=== PATIENT | female | born 2000 | race Caucasian/White ===

== ENCOUNTER 2018-09-13 05:11 | Inpatient (IN) ==
[2018-09-13] MEDS ORDERED: LR 1,000 ML IV SCH (05:15)
[2018-09-13] MEDS ORDERED: BICITRA PO ONE ×2 (05:20→05:30)
[2018-09-13] MEDS ORDERED: PEPCID PO ONE ×2 (05:20→05:30)
[2018-09-13] MEDS ORDERED: REGLAN IV ONE ×2 (05:20→05:30)
--- NOTE | 2018-09-13 05:46 | HISTORY AND PHYSICAL ---
CHIEF COMPLAINT: Thirty-nine weeks intrauterine with a history of prior . HISTORY OF PRESENT ILLNESS: Patient is a 18-year-old black female, G2, P1, at 39 and 0/7ths weeks with a history of prior who was scheduled for repeat . The patient's care has been unremarkable except for anemia. PAST MEDICAL HISTORY: Significant for anemia. PAST SURGICAL HISTORY: and tonsillectomy. PAST OB HISTORY: G2, P1, x1. SALES COORDINATOR HISTORY: Menarche at age 9. REVIEW OF SYSTEMS: All systems reviewed and noncontributory. FAMILY HISTORY: Significant for diabetes mellitus. SOCIAL HISTORY: Tobacco use none. Alcohol use none. MEDICATIONS: vitamins and iron. ALLERGIES: Penicillin. PHYSICAL EXAMINATION: VITAL SIGNS: Height 5 feet 2 inches, weight 216 pounds. Temperature 98.4 degrees, blood pressure 138/81, pulse of 84, respirations 20, and heart rate 154. HEENT: Pupils equal, round, and reactive to light and accommodation. Extraocular movements intact. Oropharynx clear. NECK: Supple. No thyromegaly. LUNGS: Clear to auscultation. HEART: Regular rate and rhythm. ABDOMEN: Gravid. Nontender. EXTREMITIES: No clubbing, cyanosis, or edema noted. NEUROLOGIC: Cranial nerves 2-12 grossly intact. Motor 5/5. DTRs 2+ bilaterally. ASSESSMENT AND PLAN: A 18-year-old black female, G2, P1, at 39 and 0/7ths weeks gestation with a history of prior . Patient is scheduled for repeat . She was counseled about the risks of surgery including bleeding, infection, bowel or bladder injury. Surgery is scheduled for 09/13/2018. cc: Cb Parish III, MD
[2018-09-13 05:50] LABS: URINE SOURCE VOIDED
[2018-09-13 05:58] LABS: BASO# 0.02 X1000 (0.0-0.2); BASO% 0.2 % (0.0-0.8); EOS# 0.13 X1000 (0.0-0.7); EOS% 1.2 % (0.0-10.0); HEMOGLOBIN 10.4 g/dL (12.0-16.0); IMM GRAN# 0.03 X1000 (0.0-0.04); IMM GRAN% 0.3 % (0.0-0.5); LYMPH# 3.07 X1000 (1.2-3.4); LYMPH% 27.7 % (20.5-51.1); MCH 24.7 PG (27-31); MCHC 32.5 g/dL (33-37); MONO# 0.92 X1000 (0.11-0.59); MONO% 8.3 % (1.7-9.3); MPV 10.5 FL (7.4-10.4); NEUT# 6.92 X1000 (1.4-6.5); NEUT% 62.3 % (42.2-75.2); PLT 377 X1000 (130-400); RBC 4.21 XMIL (4.2-5.4); RDW 14.4 % (11.5-14.5); WBC 11.09 X1000 (4.8-10.8)
[2018-09-13] MEDS ORDERED: CLINDAMYCIN 900 MG/D5W 900 MG/50 ML IVPB IV ONE (06:12)
[2018-09-13 06:23] LABS: BILIRUBIN URINE NEGATIVE (NEGATIVE); CLARITY CLEAR (CLEAR); COLOR YELLOW; GLUCOSE URINE NEGATIVE (NEGATIVE); KETONE URINE TRACE mg/dL (NEGATIVE)
[2018-09-13] MEDS ORDERED: SODIUM CHLORIDE 0.9% 10 ML ONE (06:30)
[2018-09-13] MEDS ORDERED: PITOCIN ONE (06:30)
[2018-09-13 06:32] LABS: UR AMPHETAMINES QUAL NONE DETECTED (NONE DETECT); UR BARBITUATES QUAL NONE DETECTED (NONE DETECT); UR BENZODIAZEPIN QUAL NONE DETECTED (NONE DETECT); UR CANNABINOIDS QUAL NONE DETECTED (NONE DETECT); UR COCAINE QUAL NONE DETECTED (NONE DETECT); UR METHADONE QUAL NONE DETECTED (NONE DETECT); UR METHAMPHETAMINE QUAL NONE DETECTED (NONE DETECT); UR OPIATES QUAL NONE DETECTED (NONE DETECT); UR OXYCODONE QUAL NONE DETECTED (NONE DETECT); UR PCP QUAL NONE DETECTED (NONE DETECT); UR PROPOXYPHENE QUAL NONE DETECTED (NONE DETECT); UR TCA QUAL NONE DETECTED (NONE DETECT)
[2018-09-13] MEDS ORDERED: EPHEDRINE ONE (06:32)
[2018-09-13] MEDS ORDERED: DURAMORPH ONE (06:34)
[2018-09-13] MEDS ORDERED: ZOFRAN ONE (07:40)
[2018-09-13] MEDS ORDERED: DEMEROL PO PRN ×2 (08:06)
[2018-09-13] MEDS ORDERED: BOOSTRIX VACCINE IM ONE (08:06)
[2018-09-13] MEDS ORDERED: AMBIEN PO PRN (08:06)
[2018-09-13] MEDS ORDERED: DEMEROL IM PRN (08:06)
[2018-09-13] MEDS ORDERED: HYDROXYZINE IM PRN (08:06)
[2018-09-13] MEDS ORDERED: DULCOLAX PR PRN (08:06)
[2018-09-13] MEDS ORDERED: NORCO-5 PO PRN (08:06)
[2018-09-13] MEDS ORDERED: PITOCIN 20 UNITS/NS 20 UNITS/1,000 ML IV.SOLN IV ONE (08:06)
[2018-09-13] MEDS ORDERED: M-M-R II VACCINE SUBQ ONE (08:06)
[2018-09-13] MEDS ORDERED: ATARAX PO PRN (08:06)
[2018-09-13] MEDS ORDERED: PITOCIN IM PRN (08:06)
[2018-09-13] MEDS ORDERED: MYLICON PO PRN (08:06)
[2018-09-13] MEDS ORDERED: PHENERGAN IM PRN (08:06)
[2018-09-13 08:10] LABS: BLOOD URINE NEGATIVE (NEGATIVE); LEUKOCYTES URINE 1+ (NEGATIVE); NITRITE URINE NEGATIVE (NEGATIVE); PROTEIN URINE TRACE mg/dL (NEGATIVE); UROBILINOGEN URINE 4 mg/dL
--- NOTE | 2018-09-13 09:01 | OPERATIVE NOTE ---
PROCEDURE DATE: 09/13/2018 PREOPERATIVE DIAGNOSIS: Intrauterine (IUP) at 39 weeks with history of prior . POSTOPERATIVE DIAGNOSIS: Intrauterine (IUP) at 39 weeks with history of prior with operative delivery of a female infant, 7 pounds 2 ounces with Apgars of 8 and 9 at 7:23 on 09/13/2018. PROCEDURE: Repeat low-transverse . SURGEON: Dr. Parish. SKIP HOIST OPERATOR: Dr. Culp. ANESTHESIA: Spinal, Amy Spangler FINDINGS: Normal-appearing uterus, tubes, and ovaries. COMPLICATIONS: None. ESTIMATED BLOOD LOSS: 500 mL. SPECIMENS REMOVED: Placenta. DRAINS: Wilder to straight drain. COUNTS: All counts were correct x3. INDICATIONS: Patient is a 18-year-old black female, G2, P1, at 39 weeks gestation with a history of prior . Patient IS scheduled for elective repeat . Patient counseled about the risks of surgery including bleeding, infection, bowel or bladder injury. DESCRIPTION OF PROCEDURE: The patient was taken to labor and delivery OR. Spinal anesthesia was placed and then patient was placed in the supine position with a roll under right hip. She was prepped and draped in a sterile fashion. Placed in Wilder catheter. Adequate anesthesia was noted by using Allis clamps on the skin and then a Pfannenstiel skin incision was made on lower abdomen using scalpel. This was taken down sharply to the fascia layer. A small zeina was made in the rectus fascia. The facile incision was then extended bilaterally by curved Dumont scissors and pickups, and then sharp and blunt dissection superiorly and inferiorly of the rectus fascia was performed. The rectus muscles then divided in the midline. Peritoneal layer was entered bluntly and then the incision was then extended superiorly and inferiorly with care taken to avoid the bladder. At this point in time, a bladder blade was placed into the abdominal cavity. Bladder reflection was created but there were dense adhesions to the bladder. The scalpel was then used to make an transverse incision was made on the lower segment of the uterus and this was extended by the surgeon's fingers. Clear fluid was noted upon entry into the amniotic cavity and the head was then elevated toward the hysterotomy site and with gentle fundal pressure, the head was delivered and then bulb suction of the nose and mouth, then the rest the body was delivered atraumatically with gentle fundal pressure. The umbilical cord was clamped twice and cut. handed to nursery nurse in attendance for delivery. The cord blood sample was obtained and then the placenta was manually extracted. Uterus was then exteriorized. Wet lap was placed around the uterus. Dry lap was then used to curette the uterine cavity of clots and debris. Uterine incision was then closed using 0 chromic in a running, locking fashion x1. A small area of oozing was noted on the left corner made hemostatic with interrupted stitch of 0 chromic. The posterior cul-de-sac was then cleansed using irrigation and the uterus was replaced back into the abdominal cavity. The pericolic gutters were cleansed using moist lap sponges. The uterine incision and bladder reflection were inspected and good hemostasis was noted. The tubes and ovaries were also noted to be normal in appearance. The peritoneal layer was then closed using 2-0 chromic in a running fashion x1 and 3 interrupted sutures of 2-0 chromic were used to reapproximate the rectus muscle. Fascia was then closed using 0 PDS in a running fashion x1. Subcutaneous layer was then irrigated using saline and electrocautery was used to obtain hemostasis. Three interrupted sutures of 3-0 chromic were used to reapproximate the subcutaneous layer. [place] were used to reapproximate the skin. Patient tolerated the procedure well and was taken recovery room in a stable condition. All counts were correct x3. cc: Cb Parish III, MD
[2018-09-13] MEDS: TORADOL IV SCH ×3 (09:27→22:19)
[2018-09-13] MEDS ORDERED: ZOFRAN ODT PO PRN (10:15)
[2018-09-13] MEDS ORDERED: ZOFRAN IV PRN ×2 (10:15)
[2018-09-13] MEDS ORDERED: BENADRYL IV PRN (10:15)
[2018-09-13] MEDS ORDERED: NARCAN INJ PRN (10:15)
[2018-09-13] MEDS: MYLICON PO SCH ×5 (15:36→20:28)
[2018-09-13] MEDS: NORCO-10 PO PRN (18:20)
[2018-09-13] MEDS ORDERED: PITOCIN 20 UNITS/NS 20 UNITS/1,000 ML IV.SOLN ONE (18:59)
[2018-09-13] MEDS: PITOCIN 10 UNITS/NS 1,000 ML IV SCH (19:47)
[2018-09-13] MEDS: FLINTSTONES COMPLETE PO SCH (19:47)
[2018-09-13] MEDS: PERICOLACE PO SCH (20:28)
[2018-09-14] MEDS: PITOCIN 10 UNITS/NS 1,000 ML IV SCH (03:26)
[2018-09-14] MEDS: TORADOL IV SCH (04:46)
[2018-09-14 06:43] LABS: BASO# 0.02 X1000 (0.0-0.2); BASO% 0.2 % (0.0-0.8); EOS# 0.14 X1000 (0.0-0.7); EOS% 1.3 % (0.0-10.0); HEMATOCRIT 27.1 % (37.0-47.0); HEMOGLOBIN 8.5 g/dL (12.0-16.0); IMM GRAN# 0.02 X1000 (0.0-0.04); IMM GRAN% 0.2 % (0.0-0.5); LYMPH# 1.99 X1000 (1.2-3.4); MCH 24.6 PG (27-31); MCHC 31.4 g/dL (33-37); MCV 78.3 FL (81-99); MONO# 0.86 X1000 (0.11-0.59); MONO% 7.8 % (1.7-9.3); NEUT% 72.5 % (42.2-75.2); PLT 255 X1000 (130-400); RBC 3.46 XMIL (4.2-5.4); RDW 14.5 % (11.5-14.5); WBC 11.03 X1000 (4.8-10.8)
[2018-09-14] MEDS: NORCO-10 PO PRN (07:24)
[2018-09-14] MEDS ORDERED: LR 1,000 ML IV SCH (08:07)
[2018-09-14] MEDS: FERROUS SULFATE PO SCH (10:22)
[2018-09-14] MEDS: MOTRIN PO PRN ×2 (10:22→17:33)
[2018-09-14] MEDS: FLINTSTONES COMPLETE PO SCH (10:22)
[2018-09-14] MEDS: MYLICON PO SCH ×5 (10:22→20:58)
[2018-09-14] MEDS ORDERED: PERCOCET-5 PO PRN (11:59)
[2018-09-14] MEDS ORDERED: LEXAPRO PO ONE ×2 (12:01→15:34)
[2018-09-14] MEDS: PERCOCET-10 PO PRN ×2 (12:57→17:33)
[2018-09-14] MEDS: LEXAPRO PO SCH (16:28)
[2018-09-14] MEDS: PERICOLACE PO SCH (20:58)
[2018-09-15] MEDS: MOTRIN PO PRN (02:10)
[2018-09-15] MEDS: PERCOCET-10 PO PRN ×2 (02:10→09:58)
--- NOTE | 2018-09-15 07:41 | OB/GYN PROGRESS NOTE ---
Progress Note OB - . Patient Problems: Current Active Problems Problem Status Onset care following delivery Acute History of depression Acute Hx of drug abuse Acute Intrauterine Acute OB Progress Note: Vital Signs - 24 hr 09/14/18 13:00 09/14/18 16:00 09/14/18 16:10 Temperature 97.9 F 97.8 F Pulse Rate 81 91 H Respiratory Rate 16 16 Blood Pressure 121/63 139/77 O2 Sat by Pulse Oximetry 99 100 98 09/14/18 21:00 09/15/18 02:15 Temperature 97.1 F L Pulse Rate 81 77 Respiratory Rate 18 18 Blood Pressure 135/84 157/89 O2 Sat by Pulse Oximetry 99 100 HPI: Pt seen and exmained. Currently w/o complaints. Denies pain. Ambulating and urinating without difficulty. Tolerating regular diet. Denies fever/chills/n/v.Decreased lochia. VS: please see above GEN: NAD, resting in bed comfortably CV: +S1+S2, RRR RESP: CTA b/l ABD: soft NTTP, fundus firm below umbilicus INC: mouna in-situ, c/d/i EXT: neg CT Laboratory Last Values WBC 11.03 X1000 (4.8-10.8) H 09/14/18 06:30 RBC 3.46 XMIL (4.2-5.4) L 09/14/18 06:30 Hgb 8.5 g/dL (12.0-16.0) L D 09/14/18 06:30 Hct 27.1 % (37.0-47.0) L 09/14/18 06:30 MCV 78.3 FL (81-99) L 09/14/18 06:30 MCH 24.6 PG (27-31) L 09/14/18 06:30 MCHC 31.4 g/dL (33-37) L 09/14/18 06:30 RDW Std Deviation 14.5 % (11.5-14.5) 09/14/18 06:30 Plt Count 255 X1000 (130-400) D 09/14/18 06:30 MPV 10.0 FL (7.4-10.4) 09/14/18 06:30 Immature Gran % (Auto) 0.2 % (0.0-0.5) 09/14/18 06:30 Neut % (Auto) 72.5 % (42.2-75.2) 09/14/18 06:30 Lymph % (Auto) 18.0 % (20.5-51.1) L 09/14/18 06:30 [place] % (Auto) 7.8 % (1.7-9.3) 09/14/18 06:30 Eos % (Auto) 1.3 % (0.0-10.0) 09/14/18 06:30 Baso % (Auto) 0.2 % (0.0-0.8) 09/14/18 06:30 Immature Gran # (Auto) 0.02 X1000 (0.0-0.04) 09/14/18 06:30 Neut # (Auto) 8.00 X1000 (1.4-6.5) H 09/14/18 06:30 Lymph # (Auto) 1.99 X1000 (1.2-3.4) 09/14/18 06:30 Loving # (Auto) 0.86 X1000 (0.11-0.59) H 09/14/18 06:30 Eos # (Auto) 0.14 X1000 (0.0-0.7) 09/14/18 06:30 Baso # (Auto) 0.02 X1000 (0.0-0.2) 09/14/18 06:30 Urine Source VOIDED 09/13/18 05:24 Urine Color YELLOW 09/13/18 05:24 Urine Clarity CLEAR (CLEAR) 09/13/18 05:24 Urine pH 7.0 09/13/18 05:24 Ur Specific [place] 1.010 09/13/18 05:24 Urine Protein TRACE mg/dL (NEGATIVE) A 09/13/18 05:24 Urine Ketones TRACE mg/dL (NEGATIVE) 09/13/18 05:24 Urine Blood NEGATIVE (NEGATIVE) 09/13/18 05:24 Urine Nitrite NEGATIVE (NEGATIVE) 09/13/18 05:24 Urine Bilirubin NEGATIVE (NEGATIVE) 09/13/18 05:24 Urine Urobilinogen 4 mg/dL 09/13/18 05:24 Urine WBC 1+ (NEGATIVE) A 09/13/18 05:24 Urine Glucose NEGATIVE mg/dL (NEGATIVE) 09/13/18 05:24 Urine Opiates Screen NONE DETECTED (NONE DETECT) 09/13/18 05:24 Ur Oxycodone Screen NONE DETECTED (NONE DETECT) 09/13/18 05:24 Urine Methadone Screen NONE DETECTED (NONE DETECT) 09/13/18 05:24 U Propoxyphene Qual NONE DETECTED (NONE DETECT) 09/13/18 05:24 Ur Barbituates Screen NONE DETECTED (NONE DETECT) 09/13/18 05:24 Ur Tricyclics Screen NONE DETECTED (NONE DETECT) 09/13/18 05:24 Ur Phencyclidine Scrn NONE DETECTED (NONE DETECT) 09/13/18 05:24 Ur Amphetamines Screen NONE DETECTED (NONE DETECT) 09/13/18 05:24 U Methamphetamines Scrn NONE DETECTED (NONE DETECT) 09/13/18 05:24 U Benzodiazepines Scrn NONE DETECTED (NONE DETECT) 09/13/18 05:24 Urine Cocaine Screen NONE DETECTED (NONE DETECT) 09/13/18 05:24 U Cannabinoids Screen NONE DETECTED (NONE DETECT) 09/13/18 05:24 RPR NON-REACTIVE (NONREACTIVE) 09/13/18 05:35 Blood Type A POSITIVE 09/13/18 05:35 Antibody Screen NEGATIVE 09/13/18 05:35 ASSESSMENT: 18yo POD#2, s/p repeat CD PLAN: -Continue routine care -OOB-->ambulation -Regular diet -pt requesting d/c home today
[2018-09-15] MEDS: LEXAPRO PO SCH (09:57)
[2018-09-15] MEDS: FLINTSTONES COMPLETE PO SCH (09:59)
[2018-09-15] MEDS: MYLICON PO SCH (09:59)
[2018-09-15] MEDS: FERROUS SULFATE PO SCH (09:59)
[2018-09-15 10:16] VITALS: BP 144/85
--- NOTE | 2018-09-16 08:46 | DISCHARGE SUMMARY ---
ADMISSION DATE: 09/13/2018 DISCHARGE DATE: 09/15/2018 FINAL DIAGNOSIS: Intrauterine at 39 weeks with a repeat delivery. SUMMARY OF HOSPITAL COURSE: The patient is a 18-year-old black female G2, P1, at 39 weeks and 0 days who presented to Labor and Delivery for a scheduled repeat section. The patient's care was unremarkable except for anemia. Repeat section was completed without complication. Please see op report. Hospital day #2, postoperative day #1,the patient tolerating IV pain medications and ambulating and urinating without complications. Incision was found to be clean, dry, and intact with mouna in situ. The patient tolerating a regular diet. Denied any nausea or vomiting. Hospital day #3, postop day #2, patient resting in bed comfortably. Denied any pain. Pain well tolerated with p.o. pain medications. The patient reported history of Lexapro in the past and requested restarting medication which was given to her on hospital day #2. Patient tolerating medication appropriately and requesting discharge home. Vitals remained stable and patient ambulating and urinating without difficulty, tolerating p.o. medications and admits to flatus, however, no bowel movements. Plan for discharge on hospital day #3, postop day #2. DISPOSITION: Of discharge stable. Plan for discharge to home. MEDICATIONS ON DISCHARGE: Lexapro 10 mg p.o. daily, ferrous sulfate 325 mg p.o. daily, ibuprofen 800 mg p.o. q.8 hours, Percocet 5 mg/325 mg 1 tab p.o. q.4 hours p.r.n. FOLLOW-UP: Patient advised to follow up with Dr. Parish in 1 week for staple removal. cc: Cb Parish III, MD
== END 2018-09-15 11:45 | disposition home or self-care (01) | DRG 788 ==
LOC: P.LD 05:11
PROVIDERS: ADMIT Obstetrics & Gynecology; ATTEND Obstetrics & Gynecology
CPT/HCPCS: 59025; 80104; 80301; 80305; 81003; 85025; 86592; 86850; 86900; 86901; A9270; G0431; G0434; G0477; J1885; J2274; J2275; J2405; J2590; J2765; J7120; Q9974